=== PATIENT | female | born 1960 | race Caucasian/White ===

== ENCOUNTER → 2016-11-25 | Outpatient (CLI) | payer OTHER | END | disposition home or self-care (01) | LOC: RAD.S 07:58 | DX: Z12.31 Encounter for screening mammogram for malignant neoplasm of breast (principal) ==

== ENCOUNTER 2017-02-02 09:29 | Day surgery (SDC) | payer OTHER ==
[~2017-02-02] VITALS: Ht 167.6 cm; Wt 107.0 kg
--- NOTE | 2017-02-06 11:37 | OR ---
ADMIT: 02/02/2017 RM/LOC: [facility] MR#: [id number] [address] [id number] LADAN HOLLINS [address] [place] [address] Operative/Delivery Room Report SEX: F AGE: 56 : 1960 SURGERY DATE: 02/02/2017 SURGEON: Star Sellers MD PREOPERATIVE DIAGNOSIS: Rectal bleeding and iron deficiency blood loss anemia. POSTOPERATIVE DIAGNOSES: 1. Recurrent hiatal hernia with associated Richar ulcers. 2. Intact fundoplication. 3. Normal-appearing colon. PROCEDURE: 1. Esophagogastroduodenoscopy with biopsy. 2. Complete colonoscopy. ANESTHESIA: IV general. DESCRIPTION OF PROCEDURE: The patient was taken to the endoscopy suite and placed left side down on her hospital cart. A bite-block was placed and IV sedation was established. The upper endoscope was advanced through the oropharynx into the esophagus without difficulty. The scope was pushed under visualization of the stomach. Air was used to insufflate the stomach. The pylorus was intubated. The first, second, and third portions of the duodenum were examined and appeared normal. The scope was withdrawn to the stomach. The antrum appeared normal. On retroflexion of the scope, a moderate-sized hiatal hernia was visualized. There were also several Richar ulcerations at this area. Biopsies of these were obtained. The fundoplication was intact. The scope was withdrawn to the gastroesophageal junction. The Z-line appeared normal as did the remainder of the esophageal mucosa. Next, a rectal exam was performed. There were no palpable abnormalities. The flexible colonoscope was advanced under direct visualization through the entire colon to the level of the cecum. The cecum was identified by its anatomic landmarks in the ileocecal valve. The prep was good. Care was taken upon withdrawal of the scope to examine mucosa of the colon. The cecum, ascending colon, transverse colon, and descending colon appeared normal. No inflammatory change polyp or other abnormality was seen. The scope was withdrawn to the rectum and this was normal on inspection. Air was suctioned. The patient tolerated the procedure well and transferred to the recovery area in stable condition. Star Sellers MD/ jason JOB #: [id number] CC: Star Sellers, Attending Physician Loyd Garay, Family Physician
== END 2017-02-02 12:55 | disposition home or self-care (01) ==
LOC: SSS 09:29
DX: K25.9 Gastric ulcer, unspecified as acute or chronic, without hemorrhage or perforation (principal); K44.9 Diaphragmatic hernia without obstruction or gangrene; D50.0 Iron deficiency anemia secondary to blood loss (chronic); R23.3 Spontaneous ecchymoses; E66.9 Obesity, unspecified; K62.5 Hemorrhage of anus and rectum; Z98.890 Other specified postprocedural states; Z90.49 Acquired absence of other specified parts of digestive tract